=== PATIENT | male | born 1960 | race Caucasian/White ===

== ENCOUNTER → 2023-10-06 09:03 | Outpatient (REF) | payer OTHER, SELFPAY ==
[2023-10-06 11:06] LABS: Blood Urea Nitrogen 19 mg/dl (9-20); Calcium 9.6 mg/dl (8.4-10.2); Carbon Dioxide 25 mmol/L (22-30); Chloride 105 mmol/L (98-107); Glucose 120 mg/dl (70-99); Potassium 4.7 mmol/L (3.5-5.1); Sodium 137 mmol/L (135-145); eGFR > 60.00
== END ==
LOC: REG 09:03
PROVIDERS: ATTENDING PHYSICIAN Surgery Vascular Surgery; FAMILY PHYSICIAN Internal Medicine
DX: D44.6 Neoplasm of uncertain behavior of carotid body (principal)
CPT/HCPCS: 36415; 80048

== ENCOUNTER → 2023-10-14 09:15 | Outpatient (REF) | payer OTHER, SELFPAY | LOC: RAD 09:15 | PROVIDERS: ATTENDING PHYSICIAN Surgery Vascular Surgery; FAMILY PHYSICIAN Internal Medicine | DX: R42 Dizziness and giddiness (principal); D44.6 Neoplasm of uncertain behavior of carotid body; I10 Essential (primary) hypertension; I73.9 Peripheral vascular disease, unspecified; E11.40 Type 2 diabetes mellitus with diabetic neuropathy, unspecified | CPT/HCPCS: 70496; 70498; 93880; Q9967 ==

== ENCOUNTER → 2023-10-21 12:07 | Outpatient (REF) | payer OTHER, SELFPAY ==
[2023-10-23 14:48] LABS: 24 Hour Urine Total Volume Random mL; Creatinine, Urine per Volume 95 mg/dL; Dopamine, Urine 105 ug/L; Dopamine/Creatinine Ratio 111 ug/g CRT (0-250); Epinephrine, Urine 4 ug/L; Epinephrine/Creatinine Ratio 4 ug/g CRT (0-20); Norepinephrine, Urine 29 ug/L; Norepinephrine/Creatinine Rat 31 ug/g CRT (0-45); Urine Collection Length Random hr
== END ==
LOC: REG 12:07
PROVIDERS: ATTENDING PHYSICIAN Surgery Vascular Surgery; FAMILY PHYSICIAN Internal Medicine
DX: D44.6 Neoplasm of uncertain behavior of carotid body (principal)
CPT/HCPCS: 82384

== ENCOUNTER 2023-11-24 06:09 | Inpatient (IN) | payer OTHER, MEDICARE, SELFPAY ==
[2023-11-14 09:34] VITALS: BMI 32.9
[2023-11-14 12:38] LABS: % Eosinophils 2.5 % (0-6); % Immature Granulocytes 0.3 % (0-0.5); % Monocytes 8.4 % (1.7-9.3); % Neutrophils 58.8 % (42.2-75.2); Absolute Basophils 0.1 10^3/uL (0-0.2); Absolute Eosinophils 0.2 10^3/uL (0-0.7); Absolute Monocytes 0.6 10^3/uL (0.1-0.6); Hematocrit 44.8 % (39.0-52.0); Hemoglobin 14.8 g/dL (13.0-18.0); Mean Corpuscular Hgb 29.4 pg (27.0-31.0); Mean Corpuscular Volume 88.9 fL (80.0-94.0); Mean Platelet Volume 9.3 fL (7.4-10.4); Nucleated Red Blood Cells % 0 % (-); Platelet Count 209 10^3/uL (130-400); Red Blood Cell Count 5.04 10^6/uL (4.70-6.10); Red Cell Dist. Width 13.4 % (11.5-14.5); White Blood Cell Count 6.8 10^3/uL (4.8-10.8)
[2023-11-14 13:00] LABS: INR 1.08; PT 13.9 Sec (11.4-14.6)
[2023-11-14 13:01] LABS: APTT 31.4 Sec (23.4-35.0)
[2023-11-14 13:05] LABS: Blood Urea Nitrogen 19 mg/dl (9-20); Calcium 9.7 mg/dl (8.4-10.2); Carbon Dioxide 25 mmol/L (22-30); Chloride 101 mmol/L (98-107); Estimated Creatinine Clearance 102 ml/min; Glucose 102 mg/dl (70-99); Potassium 4.7 mmol/L (3.5-5.1); Sodium 137 mmol/L (135-145); eGFR > 60.00
[2023-11-24] VITALS (9 sets, daily range): BP systolic 0–144; BP diastolic 68–94; PULSE 87; BMI 31.8
[2023-11-24] MEDS: PERIDEX 0.12% ORAL RINSE 15 ML PO (06:50)
[2023-11-24] MEDS: BACTROBAN NASAL 1 GRAM NASAL (06:50)
[2023-11-24] MEDS: NSS 500 IV (06:51)
[2023-11-24 06:58] LABS: Glucose - Point of Care 128 mg/dl (70-99)
--- NOTE | 2023-11-24 07:06 | W.SUR.PREOP ---
Pre-Operative Surgical Note
-
I have examined this patient prior to the performance of the scheduled procedure.
The patient's condition is unchanged from the time of the current History and
Physical and the patient is able to undergo the scheduled procedure.
[2023-11-24 09:59] LABS: Glucose - Point of Care 130 mg/dl (70-99)
[2023-11-24 11:28] LABS: B.E. - POC -5.1 mmol/L; Glucose - POC 164 mg/dl (65-99); HCO3 - POC 21 mmol/L (21-29); Hematocrit - POC 44 % PCV (42-52); Hemodilution- POC Yes; Ionized Calcium - POC 1.16 mmol/L (1.12-1.27); Lactate - POC 1.55 mmol/L (0.36-0.75); O2 Saturation %Calculated-POC 99.5 5 (92-96); PCO2 - POC 39 mmHg (35-45); PO2 - POC 183 mmHg (80-100); Potassium - POC 4.6 mmol/L (3.6-5.0); Sodium - POC 141 mmol/L (135-145); pH - POC 7.33 (7.35-7.45)
--- NOTE | 2023-11-24 14:00 | W.SUR.POST ---
Surgical Immediate Post Op
Note
Pre Op Diagnosis: Carotid body tumor
Post Op Diagnosis: Carotid body tumor
Procedure Performed: Excision of left carotid body tumor, ligation of external carotid artery with EEG monitoring
Primary Surgeon: Emeka Hinds MD
Secondary Surgeons: Grey Bolanos MD
assistant manager trainee: Lori Fabian, MICROFILM PROCESSOR-C
Anesthesia: GETA
Estimated Blood Loss: 700 ml
Fluids: See anesthesia flowsheet
Drains/Shunts: ALBERTO x1
Specimens/Cultures: Carotid body tumor, left
Doppler/Duplex/Angio (Y/N): Y
Complications: None
Operative Findings: Successful excision of left carotid body tumor
[2023-11-24 14:12] LABS: Glucose - Point of Care 172 mg/dl (70-99)
[2023-11-24 14:14] LABS: Hematocrit 40.4 % (39.0-52.0); Hemoglobin 13.7 g/dL (13.0-18.0); Mean Corp Hgb Conc. 33.9 g/dL (33.0-37.0); Mean Corpuscular Hgb 28.7 pg (27.0-31.0); Mean Corpuscular Volume 84.5 fL (80.0-94.0); Mean Platelet Volume 8.9 fL (7.4-10.4); Platelet Count 175 10^3/uL (130-400); Red Blood Cell Count 4.78 10^6/uL (4.70-6.10); Red Cell Dist. Width 13.3 % (11.5-14.5); White Blood Cell Count 11.6 10^3/uL (4.8-10.8)
[2023-11-24 14:30] LABS: APTT 31.1 Sec (23.4-35.0); INR 1.23; PT 15.6 Sec (11.4-14.6)
[2023-11-24 14:30] LABS: Blood Urea Nitrogen 16 mg/dl (9-20); Calcium 8.3 mg/dl (8.4-10.2); Carbon Dioxide 18 mmol/L (22-30); Chloride 109 mmol/L (98-107); Estimated Creatinine Clearance > 125 ml/min; Glucose 170 mg/dl (70-99); Potassium 4.5 mmol/L (3.5-5.1); Sodium 138 mmol/L (135-145); eGFR > 60.00
[2023-11-24] MEDS: NSS 1000 IV (14:55)
--- NOTE | 2023-11-24 15:18 | CON.INTV ---
Consultation
Consultation Request
Date/Time Consultation Requested: 11/24/23
Date/Time Consultation Performed: 11/24/23
Medical History
-
History of Present Illness:
Patient is a 63 year old M with history of HTN, HLD, charcot foot disease, recurrent LLE infections s/p surgical interventions, presenting for elective LEFT carotid body tumor excision.
Outpatient w/u includes CT angiogram 10/14/2023 showing moderate-sized bilateral carotid body tumors. Postoperatively transferred to ICU for further management.
Past Medical History
Past Medical History: Other (see list below)
Social History
Tobacco: Non-smoker
Alcohol: None
Drug: None
Family History
Family History: Reviewed & Not Pertinent
Allergies / Home Medications
Allergies
Allergy/AdvReac Type Severity Reaction Status Date / Time
No Known Allergies Allergy Verified 11/09/23 10:25
Home Medications
�Medication �Instructions �Recorded �Confirmed �Last Taken �Type
fluticasone propionate 50 1 spray intranasal BID Congestion 08/31/14 11/24/23 11/23/23 21:00 History
mcg/actuation nasal
spray,suspension
atorvastatin 40 mg tablet 80 mg PO HS High cholesterol 11/09/18 11/24/23 11/23/23 21:00 History
lisinopril 10 mg tablet 10 mg PO HS Diabetes 11/09/18 11/24/23 11/23/23 21:00 History
insulin aspart U-100 100 unit/mL 20 sliding scale dose SC AC 03/14/20 11/24/23 11/23/23 18:00 History
(3 mL) subcutaneous pen (Novolog Diabetes
FlexPen U-100 Insulin aspart)
insulin detemir U-100 100 unit/mL 60 unit SC HS Diabetes 05/27/20 11/24/23 11/23/23 21:00 History
(3 mL) subcutaneous pen
dapagliflozin propanediol 5 mg 5 mg PO HS Diabetes 02/15/22 11/24/23 11/20/23 21:00 History
tablet (Farxiga)
aspirin 81 mg chewable tablet 81 mg PO HS Heart disease/condition 09/06/22 11/24/23 11/23/23 21:00 History
paroxetine HCl 10 mg tablet 5 mg PO HS 09/06/22 11/24/23 11/23/23 21:00 History
carvedilol 3.125 mg tablet 3.125 mg PO HS Heart Failure 11/09/23 11/24/23 11/23/23 21:00 History
semaglutide 0.25 mg or 0.5 mg (2 0.25 mg SC QWEEK 11/09/23 11/24/23 11/11/23 History
mg/3 mL) subcutaneous pen injector
(Ozempic)
Review of Systems
-
History Source: Patient
All other systems: Negative unless noted
Vitals / Labs / Diagnostic Testing
Vital Signs
Temp Pulse Resp BP Pulse Ox
98 F 80 14 144/86 98
11/24/23 13:50 11/24/23 14:45 11/24/23 14:45 11/24/23 14:45 11/24/23 14:45
Lab Data
11/24/23 14:03
11/24/23 14:03
Laboratory Results
11/24/23
14:04
PT 15.6 H
INR 1.23
APTT 31.1
Diagnostic Testing:
Physical Exam
-
HEENT: Normocephalic, Anicteric, Moist Mucous Membranes and Other (incision noted with drain)
Cardiovascular: S1/S2 and Regular Rhythm
Respiratory: Clear and Non-Labored Respirations
GI: Soft, Non Distended and Non Tender
Neurology: Awake, Alert, Oriented, AO x 3 and No Motor Deficits
Skin: Warm, Dry, Good Color and Other (skin lesion on R foot, L great toe lesion, s/p left toe amp)
General: Comfortable and Other (NAD)
Assessment
-
Patient is a 63 year old M with history of HTN, HLD, charcot foot disease, recurrent LLE infections s/p surgical interventions, presenting for elective LEFT carotid body tumor excision.
Outpatient w/u includes CT angiogram 10/14/2023 showing moderate-sized bilateral carotid body tumors. Postoperatively transferred to ICU for further management.
Carotid tumor s/p L tumor excision 11/24/23
Mild leukocytosis
Mild metabolic acidosis
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
CM EF 35%
CAD
Hypertension
Hypercholesterolemia
Diabetes
Anxiety
Osteoarthritis
Non-healing amputation site
Osteomyelitis of toe of left foot
Charcot right Big toe
Rt. great toe infection
Left foot wound infection
s/p 4th toe amputation lft foot
s/p left foot wound surgery w/ graft 02/21/2022
Right wrist repair
Tonsillectomy
Discectomy L-4-5
R toe fusion 03/17
Right RTC, labral debridement and SAD (DOS 12.)
Spinal Fusion L4 L5 S1
Facial basal cell surgery 05/2022
Plan
Patient is s/p carotid body tumor resection by vascular surgery service, POD #0
Continue observation following procedure
Follow neurovascular checks per protocol
ASA, betablocker and statin on board
Follow BP monitoring and parameters as set by primary team
Cardiac history noted--HTN, EF 35% on prior ECHO, CAD
Resume home meds when able
Monitor on telemetry
Pain control per protocol
RASS goal 0
No prior history of pulmonary disease, never smoker
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
No prior PFTs for review
Encouraged IS
Outpatient sleep FU if desired
Diet advancement per protocol
Aspiration precautions
GI prophylaxis if indicated for stress ulcer prevention in the critically ill
Creat at baseline, follow UO
Critical I/Os
Void trials
Replete electrolytes as needed
No signs/symptoms suspicious for infectious etiology at this time
Will observe off antibiotics for now
Follow temperatures/CBC
Hb and platelets postoperatively stable
DVT prophylaxis recommended if not contraindicated based on procedural history -- heparin SQ and mechanical SCDs
Encouraged OOB/PT/OT/ambulation once cleared by surgical team
We will follow
Diagnostic Data
CXR 11/24/23- 1. Clear lungs.
2. Pulmonary edema seen on prior chest x-ray has resolved.
ECHO 06/28/22- Normal left ventricular size, wall thickness. Moderately reduced left ventricular systolic function. The ejection fraction is estimated at 35%. Global hypokinesis with regional variability.
Normal right ventricular size and function. Thickened mitral valve leaflets, mitral valve opens normally. Mild mitral regurgitation. Thickened trileaflet aortic valve with normal leaflet excursion. No aortic
regurgitation. No evidence of infectious endocarditis. If clinical suspicion for endocarditis remains high, PALMIRA could be repeated in 5-[address]
[facility] 09/06/22- CONCLUSIONS:
1. Severe mid left anterior descending coronary artery disease confirmed ischemic by IFR testing now status post successful percutaneous coronary intervention with a single drug-eluting stent via the right radial artery.
2. Mild to moderate, nonobstructive coronary artery disease otherwise.
3. Normal left heart catheterization pressures with no evidence of aortic stenosis.
4. Mild, nonobstructive lower extremity peripheral arterial disease.
CTA H&N 10/14/23- IMPRESSION:
1. Avidly enhancing masses on both sides of the neck, located between the proximal internal and proximal external carotid arteries on each side, and causing splaying of the internal and external carotid arteries. Masses measure up to 3.2 cm in
diameter on each side, and are consistent with bilateral carotid body tumors.
2. Masses contact less than 50% of the circumference of each proximal internal carotid artery, and do not cause significant narrowing of either internal carotid artery.
-----
Critical Care time 50 mins -- The patient is admitted for acute critical illness for the treatment of vital organ failure and/or prevention of further life-threatening conditions. Total care includes time spent in review of history, physical exam,
medications, hemodynamic/ventilator parameters, laboratory data, imaging and discussion with house staff, pharmacy, respiratory therapy, dental surgery doctor, and nursing.
--- NOTE | 2023-11-24 15:30 | PTCARENOTE ---
arrived via bed from PACU, see VS for exact time. art line zero and nelly, transduced, congruent with cuff. neuro exam with SWEET PICKLED FRUIT MAKER, unchanged, speech hoarse, tongue deviates to L when extended. no weakness, smile is symmetrical, see documentation.
call matute in reach. much less sweaty than earlier in PACU per report.
[2023-11-24] MEDS: NITROGLYCERIN PREMIX 250 IV (16:40)
[2023-11-24 17:34] LABS: Glucose - Point of Care 184 mg/dl (70-99)
[2023-11-24] MEDS: NOVOLOG FLEXPEN-HIGH RESISTANCE 2 UNITS SC (18:00)
--- NOTE | 2023-11-24 18:20 | PTCARENOTE ---
family visiting, no c/o. dressing change L gr toe, small drainage. neuro check unchanged.
--- NOTE | 2023-11-24 18:48 | OR.RPT ---
Operative Report
Operative Report
PROCEDURE DATE: 11/24/2023
Preoperative diagnosis: Left carotid body tumor
Postoperative diagnosis: Same
Procedure: Resection of left carotid body tumor with ligation of left external carotid artery with intraoperative EEG/SSEP monitoring..
Surgeon: Guzman
Business Functional Analyst: Lori Fabian NP required for all aspects of procedure including assistance with traction/countertraction, following of sutures, assistance with closure.
Grey Bolanos MD required for assistance with completion of resection of adherent medial and superior aspects of tumor.
Note intraoperative consultation to Dr. Reyes Pacheco for confirmation of anatomy at medial extent of dissection.
Complications: None
Anesthesia: General
Indications for procedure:
Patient with familial bilateral carotid body tumors. Urine catecholamines negative.
Brought for left carotid body tumor resection. Risk/benefits/alternatives all fully discussed. Specific risks including heightened risk of cranial nerve injury were discussed. Patient understood all wish to proceed.
Description of procedure:
Patient was identified brought to the operating room placed on the table in supine position. After the adequate administration of anesthesia he was prepped and draped in the standard surgical fashion. A standard preoperative timeout was undertaken
and everybody was in agreement the plan. A longitudinal incision was made in the left neck that was carried through skin subcutaneous tissue. Using the electrocautery we dissected through the platysma muscle layer and then down to the level of the
sternocleidomastoid muscle. The tissues were noted to be slightly easier than normal. I then dissected along the anterior medial border of the sternocleidomastoid muscle and then identify the internal jugular vein. The vein was carefully
dissected on its anterior medial aspect. The common facial vein branch was identified and ligated between silk ties and divided. I then deepened my retraction. I then dissected the tissues overlying the common carotid artery. I immediately noted
that these tissues were all heavily vascularized. The tumor extent did not reach to this location, but the tissues were nonetheless significantly vascularized requiring assistance of electrocautery and bipolar electrocautery. This dissection and
exposure of the vessels therefore proved to be very tedious. Overlying the common carotid there was a nerve that initially appeared to be an anterior vagus nerve. However I carefully tease it off the common carotid artery. Reflected it laterally.
(Without grasping it). I carefully circumferentially dissected the common carotid artery and passed a vessel loop around it. I then was able to follow the nerve up and identified that it appeared to be a ansa hypoglossal nerve. The hypoglossal
nerve was clearly identified and care was taken to avoid any injury. I did have to pass a vessel loop around it to allow further mobilization and retraction. I continued the dissection to the bulb and then the internal carotid artery. Again as
noted this proved to be very challenging dissection, requiring meticulous hemostasis due to tremendous vascularization of the tissues. Finally, I identified the digastric muscle. I divided a portion of the digastric muscle to allow better exposure
cephalad to the hypoglossal nerve. Then I was able to carefully circumferentially dissect the internal carotid artery distally here. I passed a vessel loop around it. This appeared distal to the tumor. The carotid bifurcation was splayed and
there was tissue in between the internal and external carotid arteries. However this did not appear to be reena tumor tissue but may have been the extension/vascularity of it. At this point I attempted to dissect on the medial aspect of the common
carotid artery then onto the external carotid artery. As I did so I was able to ligate to feeding vessels/branches into the carotid body tumor. These were ligated between silk ties and divided. I now could more clearly make out the tumor which
was essentially fully posterior to the carotid bifurcation. This was as it appeared on the CT scan. I now continued to dissect up the external carotid artery trying to stand the medial side. I was able to dissect up to the bifurcation of the
external carotid artery (relatively early bifurcation again as noted on CT scan). I circumferentially dissected the external carotid artery just proximal to that split point and passed a vessel loop around it. Now I was able to start peeling the
tumor off the posterior aspect of the carotid bifurcation. Care was taken and bipolar was used to try to minimize bleeding. I was able to identify the capsule of the tumor therefore it became much more clear mass at this point. However in
dissecting it I noted a significant mount of bleeding from the posterior aspect of the carotid bifurcation. I could not tell where it was coming from but there was significant bleeding. I could not assess whether this was a feeding branch or
whether this was in the carotid vessels. I tried to dissect the internal carotid artery on the lateral side circumferentially more proximally here to confirm that this was okay but the tissues were very stuck here. Therefore I then gave the
patient 8000 units of heparin and tightened my double looped Vesseloops on the distal internal carotid artery. I then placed a profunda clamp on the external carotid artery and clamped the common carotid artery. There were no EEG/SSEP changes.
Now I was able to rotate the carotid bifurcation laterally somewhat to look at the posterior aspect more. I could not tell for sure but there appeared to be a rent and it appeared to be in the external carotid artery. But there was significant
backbleeding from the other side and therefore this likely was a direct feeder into the carotid body tumor. It was proving to be very challenging to repair from this aspect and I felt the safest thing was now to ligate the external carotid artery
at its origin. I therefore then did that with a silk tie. (I subsequently placed a double layer running 5-0 Prolene suture on it as well). I ligated the external carotid artery on the distal side as well and then divided in between. Once I did
this I was now able to gain better access to the tumor as well. I was able to grab the tumor with a [place] and then work the capsule of the tumor away from the surrounding structures with a combination of sharp dissection, finger
dissection/sweeping, bipolar dissection. I got to the point where I was freed from the carotid bifurcation and from the inferior aspect as well. The medial and superior aspects appeared strongly adherent. I try to stay in a plane medially where
the capsule was intact. It appeared to be intact. However there was tissue medially more so that I could not discern whether this was tumor tissue or whether this was structures in the pharynx region/tonsils. I therefore then consulted one of our
ENT colleagues Dr. Pacheco who came in intraoperatively and was able to assess and did not feel that this was likely any tonsillar tissue but rather this appeared to be tumor. I reviewed with one of my partners Dr. Bolanos as well who scrubbed in. We
all agree that this was likely tumor extension. Therefore with the assistance of Dr. Bolanos, I was able to then dissect the medial tissues beyond here so as to excise that additional lip of tumor as well. As such we were able to free the medial
aspect completely. The only the superior stalk was holding us in place now. Note in order to expose the superior stock as it extended quite cephalad we had to place a retractor to retract the tissues anteriorly including the hypoglossal nerve.
The nerve was carefully preserved, but had to be retracted under a retractor. The superior stalk however had within it a nerve structure. But this nerve ran directly into the tumor. I felt that this was likely the superior laryngeal nerve. I
tried to dissect this and separate this from the tumor but it was densely adherent and ran into the tumor mass. Therefore unfortunately had to ligate it proximally and then divided. Once we did this we freed up the final remaining superior
adhesions of the tumor and were able to excise the entirety of the tumor and sent it for pathology. I then carefully inspected the tumor bed. Irrigated and achieved and confirmed full hemostasis. We confirmed hemostasis in the carotid artery. I
listened with a Doppler and there was an excellent Doppler signal and excellent pulsation in the internal carotid artery. Of note the patient had been under EEG/SSEP monitoring the entire case and there had never been any EEG changes. The patient
tolerated the procedure well. He awoke moving all 4 extremities to command.
[2023-11-24] MEDS: ZOFRAN 4 MG IV (19:20)
[2023-11-24] MEDS: HEPARIN 5000 UNITS SC (20:33)
[2023-11-24] MEDS: TYLENOL 650 MG PO (20:33)
[2023-11-24] MEDS: ZESTRIL 10 MG PO (21:36)
[2023-11-24] MEDS: LIPITOR 80 MG PO (21:36)
[2023-11-24] MEDS: PAXIL 10 MG PO (21:36)
[2023-11-24] MEDS: LANTUS 0.299999999999999989 UNITS SC (21:36)
[2023-11-24] MEDS: LOW STRENGTH ASPIRIN 81 MG PO (21:37)
[2023-11-24] MEDS: COREG 3.125 MG PO (21:37)
[2023-11-24] MEDS: FARXIGA 5 MG PO (21:37)
[2023-11-24 21:41] LABS: Glucose - Point of Care 158 mg/dl (70-99)
--- NOTE | 2023-11-24 22:28 | PTCARENOTE ---
Rec'd care of patient at 1930. Patient alert and oriented. Smile symmetrical. Tongue deviation to the left; unchanged. Pupils equal & reactive. MAEx4. Left neck incision approximated; surgical glue. ALBERTO drain with scant output. NSR on tele monitor.
VSS. Left radial spencer zeroed and flushed. Titrating Nitro gtt per protocol. Pulse ox 95-97% on 2L nc. Transitioned to CPAP HS by RT. Lung sounds diminished in b/l base. +BS. Zofran administered by day shift RN for N/VEsteban Bolanos in place for hourly
I/O. Q1hr neuro checks maintained.
[2023-11-25] VITALS (12 sets, daily range): BP systolic 118–161; BP diastolic 70–98; PULSE 85; BMI 32.0
--- NOTE | 2023-11-25 00:09 | PTCARENOTE ---
No changes. Patient resting comfortably. VSS. Weaning nitro as tolerated.
[2023-11-25] MEDS: ROXICODONE 5 MG PO (01:10)
--- NOTE | 2023-11-25 01:27 | PTCARENOTE ---
Patient c/o 11/06 pain in neck. PRN Nilda administered. Patient having some difficulty swallowing. Aspiration precautions enforced. Speech therapy eval order already in place.
[2023-11-25] MEDS: NSS 1000 IV (03:08)
--- NOTE | 2023-11-25 03:08 | PTCARENOTE ---
Nitro gtt turned off. Vitals stable and within ordered range.
[2023-11-25 03:25] LABS: Hematocrit 34.4 % (39.0-52.0); Hemoglobin 11.9 g/dL (13.0-18.0); Mean Corp Hgb Conc. 34.6 g/dL (33.0-37.0); Mean Corpuscular Volume 83.7 fL (80.0-94.0); Platelet Count 166 10^3/uL (130-400); Red Blood Cell Count 4.11 10^6/uL (4.70-6.10); Red Cell Dist. Width 13.5 % (11.5-14.5); White Blood Cell Count 7.7 10^3/uL (4.8-10.8)
[2023-11-25 03:36] LABS: INR 1.23; PT 15.5 Sec (11.4-14.6)
[2023-11-25 03:37] LABS: APTT 30.4 Sec (23.4-35.0)
[2023-11-25 03:53] LABS: Blood Urea Nitrogen 16 mg/dl (9-20); Calcium 8.5 mg/dl (8.4-10.2); Carbon Dioxide 22 mmol/L (22-30); Chloride 109 mmol/L (98-107); Estimated Creatinine Clearance > 125 ml/min; Glucose 126 mg/dl (70-99); Potassium 4.2 mmol/L (3.5-5.1); Sodium 137 mmol/L (135-145); eGFR > 60.00
[2023-11-25] MEDS: DILAUDID 0.5 MG IV ×2 (05:51→21:29)
--- NOTE | 2023-11-25 07:10 | W.PN.INTV ---
Today's Communication / Plan
Recommendations
Episode overnight noted, VSE planning
CXR remains stable
Encouraged PT/OT, OOB, IS
No indication for abx at this time, observation
Path still pending on tumor
Assessment
-
Patient is a 63 year old M with history of HTN, HLD, charcot foot disease, recurrent LLE infections s/p surgical interventions, presenting for elective LEFT carotid body tumor excision.
Outpatient w/u includes CT angiogram 10/14/2023 showing moderate-sized bilateral carotid body tumors. Postoperatively transferred to ICU for further management.
Carotid tumor s/p L tumor excision 11/24/23
Mild leukocytosis
Mild metabolic acidosis
Possible aspiration overnight
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
CAD
Hypertension
Hypercholesterolemia
Diabetes
Anxiety
Osteoarthritis
Non-healing amputation site
Osteomyelitis of toe of left foot
Charcot right Big toe
Rt. great toe infection
Left foot wound infection
s/p 4th toe amputation lft foot
s/p left foot wound surgery w/ graft 02/21/2022
Right wrist repair
Tonsillectomy
Discectomy L-4-5
R toe fusion 03/17
Right RTC, labral debridement and SAD (DOS 12.31.2019)
Spinal Fusion L4 L5 S1
Facial basal cell surgery 05/2022
Plan
Patient is s/p carotid body tumor resection by vascular surgery service, POD #1
Continue observation following procedure
Follow neurovascular checks per protocol
ASA, betablocker and statin on board
Follow BP monitoring and parameters as set by primary team
Cardiac history noted--HTN, EF 35% on prior ECHO, CAD
Resume home meds when able
Monitor on telemetry
Pain control per protocol
RASS goal 0
No prior history of pulmonary disease, never smoker
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
No prior PFTs for review
Encouraged IS
Outpatient sleep FU if desired
Choking episode overnight, repeat CXR stable
VSE planning
Diet advancement per protocol
Aspiration precautions
GI prophylaxis if indicated for stress ulcer prevention in the critically ill
Creat at baseline, follow UO
Critical I/Os
Void trials
Replete electrolytes as needed
No signs/symptoms suspicious for infectious etiology at this time
Will observe off antibiotics for now
Follow temperatures/CBC
Hb and platelets postoperatively stable
DVT prophylaxis recommended if not contraindicated based on procedural history -- heparin SQ and mechanical SCDs
Encouraged OOB/PT/OT/ambulation once cleared by surgical team
Diagnostic Data
CXR 11/24/23- 1. Clear lungs.
2. Pulmonary edema seen on prior chest x-ray has resolved.
ECHO 06/28/22- Normal left ventricular size, wall thickness. Moderately reduced left ventricular systolic function. The ejection fraction is estimated at 35%. Global hypokinesis with regional variability.
Normal right ventricular size and function. Thickened mitral valve leaflets, mitral valve opens normally. Mild mitral regurgitation. Thickened trileaflet aortic valve with normal leaflet excursion. No aortic
regurgitation. No evidence of infectious endocarditis. If clinical suspicion for endocarditis remains high, PALMIRA could be repeated in 5-10 days.
[facility] 09/06/22- CONCLUSIONS:
1. Severe mid left anterior descending coronary artery disease confirmed ischemic by IFR testing now status post successful percutaneous coronary intervention with a single drug-eluting stent via the right radial artery.
2. Mild to moderate, nonobstructive coronary artery disease otherwise.
3. Normal left heart catheterization pressures with no evidence of aortic stenosis.
4. Mild, nonobstructive lower extremity peripheral arterial disease.
CTA H&N 10/14/23- IMPRESSION:
1. Avidly enhancing masses on both sides of the neck, located between the proximal internal and proximal external carotid arteries on each side, and causing splaying of the internal and external carotid arteries. Masses measure up to 3.2 cm in
diameter on each side, and are consistent with bilateral carotid body tumors.
2. Masses contact less than 50% of the circumference of each proximal internal carotid artery, and do not cause significant narrowing of either internal carotid artery.
-----
Critical Care time 35 mins -- The patient is admitted for acute critical illness for the treatment of vital organ failure and/or prevention of further life-threatening conditions. Total care includes time spent in review of history, physical exam,
medications, hemodynamic/ventilator parameters, laboratory data, imaging and discussion with house staff, pharmacy, respiratory therapy, timber spotter, and nursing.
Subjective Dataa
Subjective Data
Date of Service:
Date of Service: November 25, 2023
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
Subjective:
had cough overnight with drink
no changes in VS overnight, VSE planning in place
Objective Data
Data Reviewed
Vital Signs / I&O / Oxygen:
Vital Signs
Temp Pulse Resp BP Pulse Ox
98.7 F 76 15 146/69 96
11/25/23 03:10 11/25/23 06:30 11/25/23 06:30 11/24/23 21:36 11/25/23 06:30
Intake and Output
11/24/23 11/25/23 11/26/23
06:59 06:59 06:59
Intake Total 1501.9 / 1501.9
Output Total 3330 / 3330
Balance -1828.1 / -1828.1
SaO2 96
Nasal Cannula flow liters per 2
minute
Physical Exam
General: Comfortable and Other (NAD)
HEENT: Normocephalic and Moist Mucous Membranes
Cardiovascular: S1-S2 and Regular Rhythm
Respiratory: Rhonchi (slight) and Non-Labored Respirations
GI: Soft, Non Distended and Non Tender
Neurology: Awake, Alert, Oriented, AO x 3 and No Motor Deficits
Skin: Warm, Dry and Good Color
Labs/Micro/Reports
Lab Data
11/25/23 03:15
11/25/23 03:15
Laboratory Results
11/24/23 11/25/23
14:04 03:15
PT 15.6 H 15.5 H
INR 1.23 1.23
APTT 31.1 30.4
[2023-11-25] MEDS: HEPARIN 5000 UNITS SC ×2 (07:36→20:41)
[2023-11-25 07:53] LABS: Glucose - Point of Care 118 mg/dl (70-99)
--- NOTE | 2023-11-25 08:47 | W.PN.VS ---
Addendum entered and electronically signed by Emeka Hinds MD 11/25/23 11:47:
Seen and examined with BALBIR Fabian. Agree with findings as noted below. Patient had 1 episode of difficulty clearing secretions overnight. Concern for some possible aspiration. He feels well now. He is without specific complaints. Notes that his
voice seems to be getting a little bit stronger. Was able to swallow liquids yesterday. On exam/left neck incision is clean dry and intact. No hematoma. ALBERTO minimal serosanguineous/old sanguinous 10 cc total. Tongue continues to veer slightly to
the left but improved from yesterday. Moves all extremities well. Smile symmetric. Voice good strength, no vocal fatigue. Possible slight pitch alterations slightly high. But otherwise okay. Plan/as discussed and noted below. Discussed with
him hypoglossal nerve intact and was preserved/protected carefully, but needed to be retracted at times. Likely resulting in slight hypoglossal palsy, but hopefully will resolve. Discussed nerve coursing through tumor that needed to be ligated
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 Continue ALBERTO for today. Given secretions/throat discomfort overnight, in case any drainage in the prior tumor bed space, would continue ALBERTO for today. Out of bed, ambulate. Discontinue arterial line.
Original Note:
Today's Communication / Plan
-
Patient seen evaluated bedside with Dr. Emeka Hinds, below plan reviewed with attending
Assessment/Plan
-
Assessment: 63-year-old male POD #1 from left carotid body tumor resection
Plan:
OOB to chair with progression ambulation as tolerated
Discontinue Bolanos catheter
Discontinue arterial line
Maintain n.p.o. status until evaluated by speech
Continue IV fluids while n.p.o.
Continue ALBERTO drains with strict I and O
Continue to observe inpatient given reports of difficulty swallowing
Subjective Data
-
Date of Service: November 25, 2023
Patient seen and examined at bedside, reports hoarse voice and difficulty swallowing. Reports adequate postoperative pain management. Denies nausea, vomiting, headache, unilateral weakness, and vision changes.
Objective Data
-
Vital Signs
Temp Pulse Resp BP Pulse Ox
98.3 F 81 15 118/70 93
11/25/23 07:48 11/25/23 08:30 11/25/23 08:30 11/25/23 07:40 11/25/23 08:30
Intake and Output
11/24/23 11/25/23 11/26/23
06:59 06:59 06:59
Intake Total 1501.9 / 1581.9 160 / 160
Output Total 3330 / 3330 300 / 300
Balance -1828.1 / -1748.1 -140 / -140
Intake:
Oral fluids 180 / 180
IV fluids (Total) 1321.9 / 1401.9 160 / 160
NSS 1300 / 1380 160 / 160
ntg 21.9 / 21.9
Output:
Drain Output (Total)
Left Neck Clark-Fang
Urine, Bolanos 3320 / 3320 300 / 300
Lab Results
11/25/23 03:15
11/25/23 03:15
Calcium 8.5 mg/dl (8.4-10.2) 11/25/23 03:15
Magnesium 2.0 mg/dl (1.6-2.3) 11/24/23 14:03
Physical Exam
-
AAOx3, no apparent distress
Left neck surgical incision CDI, sutures well-approximated, no evidence of hematoma, ALBERTO drain with scant serosanguineous output, all surrounding areas soft
Face symmetrical, tongue with left-sided deviation
No tachycardia
No dyspnea on room air
ABD rotund, nondistended
Bilateral upper and lower extremities with equal strength
--- NOTE | 2023-11-25 09:34 | PTCARENOTE ---
recd pt 0715 handoff at bedside, speech gravelly, some frothy saliva at corner of lip. neck incis approx, no edema. oral care done. seen by Dr. Hinds and vascular team, reviewing assessment. discussed plan for the day. [place] dcd, urinal obtained,
bedside. art line dcd, pressure held x 8 min, hemostatic. OOB min assistance to chair. pending speech eval. call matute bedside. ALBERTO drain to bulb, pinned to gown. IV fluids capped. Neuro/vascular assessment as documented, tongue protrudes,
deviates less than yesterday. call matute in reach.
[2023-11-25 10:54] LABS: Glycohemoglobin (HgbA1c) 6.2 % (4.0-5.6)
--- NOTE | 2023-11-25 11:55 | PTCARENOTE ---
returned from E, settled in chair. Oral suction continues. call matute in reach. neuro exam unchanged.
--- NOTE | 2023-11-25 11:56 | PTOTSP ---
Dysphagia Evaluation
Patient presents with signs concerning for cranial nerve changes and pharyngeal dysphagia s/p left carotid tumor resection 11/24/2023. Video swallow study warranted to objectively assess swallowing function.
Mild dysarthria and dysphonia present. Patient 100% intelligible.
Recommend:
1. Thin Liquids
2. Medications non-oral and/or crushed and mixed in thin liquids
3. Oral care 3x daily
4. Strategies: upright to 90 degrees, small sips
5. Video swallow study
[2023-11-25 12:10] LABS: Glucose - Point of Care 167 mg/dl (70-99)
[2023-11-25] MEDS: NOVOLOG FLEXPEN-LOW RESISTANCE 1 UNITS SC (12:31)
[2023-11-25] MEDS: ROXICODONE ORAL SOLUTION 5 MG PO (12:35)
--- NOTE | 2023-11-25 13:57 | PTOTSP ---
Video Swallow Study
Summary: Patient presents with functional oral stage of swallowing and moderate-severe pharyngeal stage of swallowing. See patient care note for details of penetration/aspiration/retention/strategies.
Recommend:
1. Thin Liquids
2. Medications non-oral, liquid form, and/or crushed and mixed with thin liquids.
3. Oral care 3x daily
4. Strategies: upright to 90 degrees, small single sips, multiple swallows, reflux precautions
5. Dysphagia therapy at the acute care level. Repeat video swallow study warranted prior to initiating solids.
--- NOTE | 2023-11-25 15:10 | CM ---
CM following re: discharge planning.
Discussed in rounds, reviewed pt's chart, met with pt. Pt's brother and sister in law at bedside.
Pt is a 63 year old male, admitted with primary dx of POD #1 from left carotid body tumor resection. Per vascular surgery, continue ALBERTO drain.
Pt reports he lives with spouse in a 2SH, 2 steps to enter. 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 Pt reports he is known to [facility].
PCP: Mikhail Andrade
Pharmacy: [facility]
D/C plan: most likely home with [facility] and family support. Spouse to transport at discharge.
CM will follow with discharge plan updates as hospitalization progresses
[2023-11-25 17:05] LABS: Glucose - Point of Care 134 mg/dl (70-99)
[2023-11-25] MEDS: TYLENOL ORAL SOLUTION 650 MG PO (17:34)
[2023-11-25] MEDS: NOVOLOG FLEXPEN-LOW RESISTANCE SC (17:35)
--- NOTE | 2023-11-25 17:39 | PTCARENOTE ---
oob in chair, eating clear liquid dinner and enlive clear (divine). skin warm, T oral 98.5, ax 99.6, med with tylenol for 'warm' and general aching. Rest of VS noted. Encouraged hydration and IS.
--- NOTE | 2023-11-25 19:44 | PTCARENOTE ---
assumed care of pt approx 1900. Pt. OOB walking unit, now in chair.
Sinus w/o ectopy, BP within ordered parameters ssp 140s, temp 99.1.
AAOX4, slight tongue deviation to L side no further deviation from offgoing nurse assessment, neuro exam unremarkable.
Surgical site C/D/I, ALBERTO remains in place minimal output. Pt offers no complaints regarding pain.
[2023-11-25] MEDS: ZESTRIL 10 MG PO (21:27)
[2023-11-25] MEDS: PAXIL 10 MG PO (21:28)
[2023-11-25] MEDS: COREG 3.125 MG PO (21:28)
[2023-11-25] MEDS: LOW STRENGTH ASPIRIN 81 MG PO (21:29)
[2023-11-25] MEDS: LANTUS 0.299999999999999989 UNITS SC (21:37)
[2023-11-25 21:47] LABS: Glucose - Point of Care 144 mg/dl (70-99)
[2023-11-26] VITALS (14 sets, daily range): BP systolic 122–146; BP diastolic 76–96; BMI 32.5
--- NOTE | 2023-11-26 00:11 | PTCARENOTE ---
Neurological assessment remains unremarkable w/o deviation from baseline.
Pupils E/R 3mm bilaterally, no clinical signs of Miosis, Ptosis, or anhidrosis.
Reported increased pain Approx 0, prn admin, pt reports pain has resolved see MAR for details.
ALBERTO dressing changed.
[2023-11-26] MEDS: TYLENOL ORAL SOLUTION 650 MG PO ×3 (03:52→21:21)
--- NOTE | 2023-11-26 03:55 | PTCARENOTE ---
Pt. complains of mild headache to left side, relieved w/ Tylenol.
Neuro assessment remains unchanged.
[2023-11-26 04:22] LABS: Hematocrit 36.2 % (39.0-52.0); Hemoglobin 11.9 g/dL (13.0-18.0); Mean Corp Hgb Conc. 32.9 g/dL (33.0-37.0); Mean Corpuscular Hgb 28.7 pg (27.0-31.0); Mean Corpuscular Volume 87.2 fL (80.0-94.0); Mean Platelet Volume 8.8 fL (7.4-10.4); Platelet Count 152 10^3/uL (130-400); Red Blood Cell Count 4.15 10^6/uL (4.70-6.10); Red Cell Dist. Width 13.4 % (11.5-14.5); White Blood Cell Count 9.4 10^3/uL (4.8-10.8)
[2023-11-26 04:53] LABS: Blood Urea Nitrogen 15 mg/dl (9-20); Calcium 8.6 mg/dl (8.4-10.2); Carbon Dioxide 22 mmol/L (22-30); Chloride 102 mmol/L (98-107); Estimated Creatinine Clearance > 125 ml/min; Glucose 163 mg/dl (70-99); Potassium 4.1 mmol/L (3.5-5.1); Sodium 133 mmol/L (135-145); eGFR > 60.00
--- NOTE | 2023-11-26 07:13 | W.PN.INTV ---
Today's Communication / Plan
Recommendations
VSE demonstrating moderate-severe pharyngeal stage of swallowing
Speech following, diet modified
Otherwise stable on room air, no acute events
Continue postop care, routine care
Path still pending on tumor
Can transfer to floors if ok with surgical team
Assessment
-
Patient is a 63 year old M with history of HTN, HLD, charcot foot disease, recurrent LLE infections s/p surgical interventions, presenting for elective LEFT carotid body tumor excision.
Outpatient w/u includes CT angiogram 10/14/2023 showing moderate-sized bilateral carotid body tumors. Postoperatively transferred to ICU for further management.
Carotid tumor s/p L tumor excision 11/24/23
Mild leukocytosis
Mild metabolic acidosis
Possible aspiration overnight
VSE + with moderate-severe pharyngeal stage of swallowing 11/25/23
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
CAD
Hypertension
Hypercholesterolemia
Diabetes
Anxiety
Osteoarthritis
Non-healing amputation site
Osteomyelitis of toe of left foot
Charcot right Big toe
Rt. great toe infection
Left foot wound infection
s/p 4th toe amputation lft foot
s/p left foot wound surgery w/ graft 02/21/2022
Right wrist repair
Tonsillectomy
Discectomy L-4-5
R toe fusion 03/17
Right RTC, labral debridement and SAD (DOS 05.29.2020)
Spinal Fusion L4 L5 S1
Facial basal cell surgery 05/2022
Plan
Patient is s/p carotid body tumor resection by vascular surgery service, POD #2
Continue observation following procedure
Follow neurovascular checks per protocol
ASA, betablocker and statin on board
Follow BP monitoring and parameters as set by primary team
Cardiac history noted--HTN, EF 35% on prior ECHO, CAD
Resume home meds when able
Monitor on telemetry
Pain control per protocol
RASS goal 0
No prior history of pulmonary disease, never smoker
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
No prior PFTs for review
Encouraged IS
Outpatient sleep FU if desired
Choking episode overnight, repeat CXR stable
VSE planning w/ speech eval 11/25/23- Summary: Patient presents with functional oral stage of swallowing and moderate-severe pharyngeal stage of swallowing
Diet advancement per protocol
Aspiration precautions
GI prophylaxis if indicated for stress ulcer prevention in the critically ill
Creat at baseline, follow UO
Critical I/Os
Void trials
Replete electrolytes as needed
No signs/symptoms suspicious for infectious etiology at this time
Will observe off antibiotics for now
Follow temperatures/CBC
Hb and platelets postoperatively stable
DVT prophylaxis recommended if not contraindicated based on procedural history -- heparin SQ and mechanical SCDs
Encouraged OOB/PT/OT/ambulation once cleared by surgical team
Diagnostic Data
CXR 11/24/23- 1. Clear lungs.
2. Pulmonary edema seen on prior chest x-ray has resolved.
ECHO 06/28/22- Normal left ventricular size, wall thickness. Moderately reduced left ventricular systolic function. The ejection fraction is estimated at 35%. Global hypokinesis with regional variability.
Normal right ventricular size and function. Thickened mitral valve leaflets, mitral valve opens normally. Mild mitral regurgitation. Thickened trileaflet aortic valve with normal leaflet excursion. No aortic
regurgitation. No evidence of infectious endocarditis. If clinical suspicion for endocarditis remains high, PALMIRA could be repeated in 5-10 days.
[facility] 09/06/22- CONCLUSIONS:
1. Severe mid left anterior descending coronary artery disease confirmed ischemic by IFR testing now status post successful percutaneous coronary intervention with a single drug-eluting stent via the right radial artery.
2. Mild to moderate, nonobstructive coronary artery disease otherwise.
3. Normal left heart catheterization pressures with no evidence of aortic stenosis.
4. Mild, nonobstructive lower extremity peripheral arterial disease.
CTA H&N 10/14/23- IMPRESSION:
1. Avidly enhancing masses on both sides of the neck, located between the proximal internal and proximal external carotid arteries on each side, and causing splaying of the internal and external carotid arteries. Masses measure up to 3.2 cm in
diameter on each side, and are consistent with bilateral carotid body tumors.
2. Masses contact less than 50% of the circumference of each proximal internal carotid artery, and do not cause significant narrowing of either internal carotid artery.
-----
Critical Care time 35 mins -- The patient is admitted for acute critical illness for the treatment of vital organ failure and/or prevention of further life-threatening conditions. Total care includes time spent in review of history, physical exam,
medications, hemodynamic/ventilator parameters, laboratory data, imaging and discussion with house staff, pharmacy, respiratory therapy, grab operator, and nursing.
Subjective Dataa
Subjective Data
Date of Service:
Date of Service: November 26, 2023
Chief Complaint: Infectious Disease Technician Follow Up
Subjective:
doing well, stable on room air
sleep terribly per patient, wants to go home
sitting in chair, otherwise in NAD
Objective Data
Data Reviewed
Vital Signs / I&O / Oxygen:
Vital Signs
Temp Pulse Resp BP Pulse Ox
98.9 F 80 19 122/96 94
11/26/23 04:00 11/26/23 06:00 11/26/23 06:00 11/26/23 06:00 11/26/23 06:00
Intake and Output
11/25/23 11/26/23 11/27/23
06:59 06:59 06:59
Intake Total 1501.9 / 1581.9 960 / 960
Output Total 3330 / 3330 2585 / 2585
Balance -1828.1 / -1748.1 -1625 / -1625
SaO2 94
Nasal Cannula flow liters per 2
minute
Physical Exam
General: Comfortable and Other (NAD)
HEENT: Normocephalic and Moist Mucous Membranes
Cardiovascular: S1-S2 and Regular Rhythm
Respiratory: Clear and Non-Labored Respirations
GI: Soft, Non Distended and Non Tender
Neurology: Awake, Alert, Oriented, AO x 3 and No Motor Deficits
Skin: Warm, Dry and Good Color
Labs/Micro/Reports
Lab Data
11/26/23 04:16
11/26/23 04:16
[2023-11-26 07:36] LABS: Glucose - Point of Care 162 mg/dl (70-99)
--- NOTE | 2023-11-26 07:57 | W.PN.VS ---
Today's Communication / Plan
-
as above
Assessment/Plan
-
Assessment: 63-year-old male POD #2 from left carotid body tumor resection
Plan:
OOB to chair with progression ambulation as tolerated
Continue to observe inpatient given reports of difficulty swallowing
ALBERTO removed
Subjective Data
-
Date of Service: November 26, 2023
Patient states he feels his swallowing is improved from yesterday. He has not needed to use the suction and feels he is able to speak and swallow better. His main complaint is being unable to sleep.
Objective Data
-
Vital Signs
Temp Pulse Resp BP Pulse Ox
98.5 F 80 19 122/96 94
11/26/23 07:20 11/26/23 06:00 11/26/23 06:00 11/26/23 06:00 11/26/23 06:00
Intake and Output
11/25/23 11/26/23 11/27/23
06:59 06:59 06:59
Intake Total 1501.9 / 1581.9 960 / 960
Output Total 3330 / 3330 2585 / 2585
Balance -1828.1 / -1748.1 -1625 / -1625
Intake:
Oral fluids 180 / 180 800 / 800
IV fluids (Total) 1321.9 / 1401.9 160 / 160
NSS 1300 / 1380 160 / 160
ntg 21.9 / 21.9
Output:
Drain Output (Total)
Left Neck Clark-Fang
Urine, Bolanos 3320 / 3320 1000 / 1000
Urine, Voided 1575 / 1575
Lab Results
11/26/23 04:16
11/26/23 04:16
Calcium 8.6 mg/dl (8.4-10.2) 11/26/23 04:16
Magnesium 2.0 mg/dl (1.6-2.3) 11/24/23 14:03
Physical Exam
-
Speech slightly garbled
L neck soft, incision c/d/i
--- NOTE | 2023-11-26 08:00 | PTCARENOTE ---
Patient received from scene shifter, presents as assessed. Patient is alert and oriented, pleasant. Left tongue deviation noted. Neurochecks maintained. SR on telemetry. Lungs CTA. Patient uses home CPAP HS. Abdomen round, obese. Bathroom privileges
for elimination needs. Vascular surgery GUEST SERVICES ASSISTANT removed ALBERTO drain this am. Patient OOB to chair. Patient offers no complaints currently.
[2023-11-26] MEDS: NOVOLOG FLEXPEN-LOW RESISTANCE 1 UNITS SC (08:10)
[2023-11-26] MEDS: HEPARIN 5000 UNITS SC ×2 (08:11→21:22)
--- NOTE | 2023-11-26 12:00 | PTCARENOTE ---
Patient assessment largely unchanged. Patient offers no complaints. Pt sitting comfortably in chair.
[2023-11-26 12:06] LABS: Glucose - Point of Care 125 mg/dl (70-99)
[2023-11-26] MEDS: NOVOLOG FLEXPEN-LOW RESISTANCE SC ×2 (12:38→17:19)
--- NOTE | 2023-11-26 16:00 | PTCARENOTE ---
Patient assessment unchanged. Pt sitting OOB to chair, offers no complaints at this time.
[2023-11-26 17:20] LABS: Glucose - Point of Care 122 mg/dl (70-99)
--- NOTE | 2023-11-26 20:00 | PTCARENOTE ---
Assumed care of pt. approx 1900, OOB in chair.
AAOx4, slight tongue deviation to left no change from baseline assessment from prior shift. Pupils E/R 3mm brisk.
Sinus w/o ectopy, normotensive, normothermic, surgical site intact w/ dermabond.
Pt. offers no complaints of pain.
[2023-11-26] MEDS: LOW STRENGTH ASPIRIN 81 MG PO (21:19)
[2023-11-26] MEDS: ZESTRIL 10 MG PO (21:19)
[2023-11-26] MEDS: PAXIL 10 MG PO (21:21)
[2023-11-26] MEDS: COREG 3.125 MG PO (21:21)
[2023-11-26 21:53] LABS: Glucose - Point of Care 140 mg/dl (70-99)
[2023-11-26] MEDS: LANTUS 0.299999999999999989 UNITS SC (22:44)
--- NOTE | 2023-11-26 23:59 | PTCARENOTE ---
Pt. sleeping, all vitals stable, no deviation from prior assessment.
[2023-11-27] VITALS (14 sets, daily range): BP systolic 116–165; BP diastolic 77–101; BMI 32.5
--- NOTE | 2023-11-27 04:01 | PTCARENOTE ---
No change in assessment, pt. remains sleeping, vitals stable, no deviation from neurological baseline.
[2023-11-27 05:01] LABS: Hematocrit 35.1 % (39.0-52.0); Hemoglobin 11.6 g/dL (13.0-18.0); Mean Corpuscular Hgb 28.6 pg (27.0-31.0); Mean Corpuscular Volume 86.7 fL (80.0-94.0); Mean Platelet Volume 8.9 fL (7.4-10.4); Platelet Count 157 10^3/uL (130-400); Red Blood Cell Count 4.05 10^6/uL (4.70-6.10); Red Cell Dist. Width 13.1 % (11.5-14.5)
[2023-11-27 05:16] LABS: Blood Urea Nitrogen 11 mg/dl (9-20); Calcium 8.6 mg/dl (8.4-10.2); Carbon Dioxide 26 mmol/L (22-30); Chloride 100 mmol/L (98-107); Estimated Creatinine Clearance > 125 ml/min; Glucose 123 mg/dl (70-99); Potassium 3.8 mmol/L (3.5-5.1); Sodium 135 mmol/L (135-145); eGFR > 60.00
--- NOTE | 2023-11-27 07:16 | W.PN.INTV ---
Addendum entered and electronically signed by Gill Rios DO 11/27/23 09:35:
transfer orders placed, we will sign off upon transfer
Original Note:
Today's Communication / Plan
Recommendations
stable overnight, no issues
AVSS
postop care continued
vse noted, speech following
can likely transfer to floors if ok with vascular service
Assessment
-
Patient is a 63 year old M with history of HTN, HLD, charcot foot disease, recurrent LLE infections s/p surgical interventions, presenting for elective LEFT carotid body tumor excision.
Outpatient w/u includes CT angiogram 10/14/2023 showing moderate-sized bilateral carotid body tumors. Postoperatively transferred to ICU for further management.
Carotid tumor s/p L tumor excision 11/24/23
Mild leukocytosis
Mild metabolic acidosis
Possible aspiration overnight
VSE + with moderate-severe pharyngeal stage of swallowing 11/25/23
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
CM EF 35%
CAD
Hypertension
Hypercholesterolemia
Diabetes
Anxiety
Osteoarthritis
Non-healing amputation site
Osteomyelitis of toe of left foot
Charcot right Big toe
Rt. great toe infection
Left foot wound infection
s/p 4th toe amputation lft foot
s/p left foot wound surgery w/ graft 02/21/2022
Right wrist repair
Tonsillectomy
Discectomy L-4-5
R toe fusion 03/17
Right RTC, labral debridement and SAD (DOS 05.29.2020)
Spinal Fusion L4 L5 S1
Facial basal cell surgery 05/2022
Plan
Patient is s/p carotid body tumor resection by vascular surgery service, POD #3
Continue observation following procedure
Follow neurovascular checks per protocol
ASA, betablocker and statin on board
Follow BP monitoring and parameters as set by primary team
Cardiac history noted--HTN, EF 35% on prior ECHO, CAD
Resume home meds when able
Monitor on telemetry
Pain control per protocol
RASS goal 0
No prior history of pulmonary disease, never smoker
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
No prior PFTs for review
Encouraged IS
Outpatient sleep FU if desired
Choking episode overnight, repeat CXR stable
VSE planning w/ speech eval 11/25/23- Summary: Patient presents with functional oral stage of swallowing and moderate-severe pharyngeal stage of swallowing
Should improve as swelling resolves
Diet advancement per protocol
Aspiration precautions
GI prophylaxis if indicated for stress ulcer prevention in the critically ill
Creat at baseline, follow UO
Critical I/Os
Void trials
Replete electrolytes as needed
No signs/symptoms suspicious for infectious etiology at this time
Will observe off antibiotics for now
Follow temperatures/CBC
Hb and platelets postoperatively stable
DVT prophylaxis recommended if not contraindicated based on procedural history -- heparin SQ and mechanical SCDs
Encouraged OOB/PT/OT/ambulation once cleared by surgical team
Diagnostic Data
CXR 11/24/23- 1. Clear lungs.
2. Pulmonary edema seen on prior chest x-ray has resolved.
ECHO 06/28/22- Normal left ventricular size, wall thickness. Moderately reduced left ventricular systolic function. The ejection fraction is estimated at 35%. Global hypokinesis with regional variability.
Normal right ventricular size and function. Thickened mitral valve leaflets, mitral valve opens normally. Mild mitral regurgitation. Thickened trileaflet aortic valve with normal leaflet excursion. No aortic
regurgitation. No evidence of infectious endocarditis. If clinical suspicion for endocarditis remains high, PALMIRA could be repeated in 5-10 days.
[facility] 09/06/22- CONCLUSIONS:
1. Severe mid left anterior descending coronary artery disease confirmed ischemic by IFR testing now status post successful percutaneous coronary intervention with a single drug-eluting stent via the right radial artery.
2. Mild to moderate, nonobstructive coronary artery disease otherwise.
3. Normal left heart catheterization pressures with no evidence of aortic stenosis.
4. Mild, nonobstructive lower extremity peripheral arterial disease.
CTA H&N 10/14/23- IMPRESSION:
1. Avidly enhancing masses on both sides of the neck, located between the proximal internal and proximal external carotid arteries on each side, and causing splaying of the internal and external carotid arteries. Masses measure up to 3.2 cm in
diameter on each side, and are consistent with bilateral carotid body tumors.
2. Masses contact less than 50% of the circumference of each proximal internal carotid artery, and do not cause significant narrowing of either internal carotid artery.
-----
Critical Care time 31 mins -- The patient is admitted for acute critical illness for the treatment of vital organ failure and/or prevention of further life-threatening conditions. Total care includes time spent in review of history, physical exam,
medications, hemodynamic/ventilator parameters, laboratory data, imaging and discussion with house staff, pharmacy, respiratory therapy, elastic yarn twister helper, and nursing.
Subjective Dataa
Subjective Data
Date of Service:
Date of Service: November 27, 2023
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
Subjective:
doing well, no events
remains stable
no new complaints
Objective Data
Data Reviewed
Vital Signs / I&O / Oxygen:
Vital Signs
Temp Pulse Resp BP Pulse Ox
97.8 F 76 17 120/81 94
11/27/23 03:37 11/27/23 06:00 11/27/23 06:00 11/27/23 06:00 11/27/23 06:00
Intake and Output
11/26/23 11/27/23 11/28/23
06:59 06:59 06:59
Intake Total 960 / 960 120 / 120
Output Total 2585 / 2585 875 / 875
Balance -1625 / -1625 -755 / -755
SaO2 94
Nasal Cannula flow liters per 2
minute
Physical Exam
General: Comfortable and Other (NAD)
HEENT: Normocephalic and Moist Mucous Membranes
Cardiovascular: S1-S2 and Regular Rhythm
Respiratory: Clear and Non-Labored Respirations
GI: Soft, Non Distended and Non Tender
Neurology: Awake, Alert, Oriented, AO x 3 and No Motor Deficits
Skin: Warm, Dry and Good Color
Labs/Micro/Reports
Lab Data
11/27/23 04:51
11/27/23 04:51
[2023-11-27 07:49] LABS: Glucose - Point of Care 148 mg/dl (70-99)
[2023-11-27] MEDS: TYLENOL ORAL SOLUTION 650 MG PO ×2 (07:49→20:34)
[2023-11-27] MEDS: HEPARIN 5000 UNITS SC ×2 (07:49→20:32)
[2023-11-27] MEDS: NOVOLOG FLEXPEN-LOW RESISTANCE SC ×3 (07:50→17:17)
--- NOTE | 2023-11-27 09:26 | W.PN.VS ---
Today's Communication / Plan
-
as above
Assessment/Plan
-
Assessment: 63-year-old male POD #3 from left carotid body tumor resection
Plan:
OOB to chair with progression ambulation as tolerated
Continue to observe inpatient given reports of difficulty swallowing
ok to transfer to the floor
will await video swallow tomorrow
Subjective Data
-
Date of Service: November 27, 2023
No acute events. Says he thinks his speech is improvement, still having some trouble swallowing.
Objective Data
-
Vital Signs
Temp Pulse Resp BP Pulse Ox
98.3 F 75 14 165/101 96
11/27/23 07:36 11/27/23 08:00 11/27/23 08:00 11/27/23 07:00 11/27/23 08:00
Intake and Output
11/26/23 11/27/23 11/28/23
06:59 06:59 06:59
Intake Total 960 / 960 120 / 120 240 / 240
Output Total 2585 / 2585 875 / 875 700 / 700
Balance -1625 / -1625 -755 / -755 -460 / -460
Intake:
Oral fluids 800 / 800 120 / 120 240 / 240
IV fluids (Total) 160 / 160
NSS 160 / 160
Output:
Drain Output (Total)
Left Neck Clark-Fang
Urine, Bolanos 1000 / 1000
Urine, Voided 1575 / 1575 875 / 875 700 / 700
Lab Results
11/27/23 04:51
11/27/23 04:51
Calcium 8.6 mg/dl (8.4-10.2) 11/27/23 04:51
Magnesium 2.0 mg/dl (1.6-2.3) 11/24/23 14:03
Physical Exam
-
NAD
tongue slightly deviated, speech less garbled today
incision c/d/i, neck soft
--- NOTE | 2023-11-27 09:58 | PTCARENOTE ---
0700 patient received OOB chair. AAO x3. c/o of lower back pain 7/10 pain scale level. Neuro check assessment no change from previous shift: Pupils reactive +3; Tongue deviation to left; Mouth drooping left side. Occasional cough while swallowing
liquid noted. pt express difficulties swallowing liquid. VSS. left neck incision well approximated soft to touch . 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 Tylenol adm per prn order for back pain. K-Pad applied pt downgraded to telemetry level of care . Transfer approved by vascular
surgery
[2023-11-27 11:57] LABS: Glucose - Point of Care 143 mg/dl (70-99)
--- NOTE | 2023-11-27 15:00 | PTCARENOTE ---
Rec'd pt from ICU est 15:00 today via wheelchair. Pt AOO and pain was rated est 3-4 to lower back and left side of neck at incisional site. Pt oob and amb on his own. AOO x3 AHR reg, Lungs are clear and Abd obese and round. Pt states that he has
had a BM today. On clear liquids at this time and is able to swallow them.. Speech is on board and video swallow ordered. Slight facial noted and with a mild slurred speech which is from his recent surgery of remocal of Cancer from his left
carotid. Swelling is expected to decrease along with these recent change post surgery. pt is on day 3 post op. Will cont to monitor. Daughter is at his bedside. Speech is following. pain under control at present. Will cont to monitor.
--- NOTE | 2023-11-27 15:09 | PTCARENOTE ---
patient transfer to room 2121 Report given; VSS; No change in Neuro assessment noted. Left side deviation, mild facial drooping continue to be noted. denies headache . Left neck incision JUAN. K-pad transfer with patient
[2023-11-27 17:15] LABS: Glucose - Point of Care 112 mg/dl (70-99)
[2023-11-27 21:55] LABS: Glucose - Point of Care 136 mg/dl (70-99)
[2023-11-27] MEDS: COREG 3.125 MG PO (23:00)
[2023-11-27] MEDS: ZESTRIL 10 MG PO (23:01)
[2023-11-27] MEDS: LIPITOR 80 MG PO (23:01)
[2023-11-27] MEDS: LANTUS 0.299999999999999989 UNITS SC (23:01)
[2023-11-27] MEDS: PAXIL 10 MG PO (23:02)
[2023-11-27] MEDS: LOW STRENGTH ASPIRIN 81 MG PO (23:02)
[2023-11-28 03:02] VITALS: BP 127/68
[2023-11-28 06:00] VITALS: BMI 30.8
[2023-11-28 06:48] LABS: Hematocrit 36.6 % (39.0-52.0); Hemoglobin 12.1 g/dL (13.0-18.0); Mean Corp Hgb Conc. 33.1 g/dL (33.0-37.0); Mean Corpuscular Hgb 28.5 pg (27.0-31.0); Mean Corpuscular Volume 86.3 fL (80.0-94.0); Mean Platelet Volume 9.3 fL (7.4-10.4); Platelet Count 178 10^3/uL (130-400); Red Blood Cell Count 4.24 10^6/uL (4.70-6.10); Red Cell Dist. Width 12.9 % (11.5-14.5); White Blood Cell Count 4.5 10^3/uL (4.8-10.8)
[2023-11-28 07:10] LABS: Glucose - Point of Care 149 mg/dl (70-99)
[2023-11-28 07:17] LABS: Blood Urea Nitrogen 12 mg/dl (9-20); Calcium 8.9 mg/dl (8.4-10.2); Carbon Dioxide 27 mmol/L (22-30); Chloride 100 mmol/L (98-107); Estimated Creatinine Clearance > 125 ml/min; Glucose 123 mg/dl (70-99); Potassium 3.7 mmol/L (3.5-5.1); Sodium 136 mmol/L (135-145); eGFR > 60.00
[2023-11-28 07:47] VITALS: BP 110/70
--- NOTE | 2023-11-28 08:16 | W.PN.VS ---
Addendum entered and electronically signed by Grey Bolanos III, MD 11/28/23 10:54:
This patient was seen and examined with EDDIE Naik. I agree with the history and physical exam as well as the assessment and plan.
Signed:
Grey Bolanos III, MD
[facility] Vascular Surgery
[phone] (hwop)
Original Note:
Today's Communication / Plan
-
Seen and assessed with Dr. Bolanos
Assessment/Plan
-
Assessment: 63-year-old male POD #4 from left carotid body tumor resection
Plan:
OOB to chair with progression ambulation as tolerated
video swallow today, then likely progress diet
Subjective Data
-
Date of Service: November 28, 2023
Patient seen at bedside this a.m. with Dr. Bolanos. Patient has no complaints this morning. Patient states sips have been going well. He models with his water at bedside with no issue
Objective Data
-
Vital Signs
Temp Pulse Resp BP Pulse Ox
98.0 F 70 16 110/70 97
11/28/23 07:47 11/28/23 07:47 11/28/23 07:47 11/28/23 07:47 11/28/23 07:47
Intake and Output
11/27/23 11/28/23 11/29/23
06:59 06:59 06:59
Intake Total 120 / 120 720 / 720
Output Total 875 / 875 700 / 700
Balance -755 / -755 20 / 20
Intake:
Oral fluids 120 / 120 720 / 720
Output:
Urine, Voided 875 / 875 700 / 700
Other:
Number of approximated MODERATE 1
amounts of urine
Number of unmeasured liquid
stools
Rectum 1
Lab Results
11/28/23 05:35
11/28/23 05:35
Calcium 8.9 mg/dl (8.4-10.2) 11/28/23 05:35
Magnesium 2.0 mg/dl (1.6-2.3) 11/24/23 14:03
Physical Exam
-
AAOx3, no apparent distress
Left neck surgical incision CDI, sutures well-approximated, mild swelling, surrounding areas soft
tongue with left-sided deviation
No dyspnea on room air
Bilateral upper and lower extremities with equal strength
[2023-11-28] MEDS: NOVOLOG FLEXPEN-LOW RESISTANCE SC ×2 (09:01→17:33)
[2023-11-28] MEDS: HEPARIN 5000 UNITS SC ×2 (09:01→20:42)
[2023-11-28 12:30] VITALS: BP 140/86
[2023-11-28 12:34] LABS: Glucose - Point of Care 209 mg/dl (70-99)
[2023-11-28] MEDS: NOVOLOG FLEXPEN-LOW RESISTANCE 2 UNITS SC (12:54)
--- NOTE | 2023-11-28 13:08 | PTOTSP ---
Video Swallow Study
Summary: Patient presents with functional oral stage of swallowing and moderate-severe pharyngeal stage of swallowing. See patient care note for details of penetration/aspiration/retention/strategies.
No significant improvement noted compared to study 11/25/2023. Dysphagia likely secondary to cranial nerve changes after left carotid tumor resection. Patient is at an elevated risk for aspiration and choking.
Recommend:
1. Thin Liquids AND consider non-oral means of supplemental nutrition/hydration
2. Medications non-oral, liquid form, and/or crushed and mixed with thin liquids.
3. Oral care 3x daily
4. Strategies: upright to 90 degrees, small single sips, multiple swallows, reflux precautions
5. Dysphagia therapy at the acute care level and after D/C.
6. Consult dietitian
[2023-11-28 14:43] VITALS: BP 164/95
--- NOTE | 2023-11-28 16:11 | W.PN.UPDATE ---
Update Note
Progress Note Update
Discussed with patient results of video swallow.
Discussed that I have asked ENT - Dr. Pacheco to evaluate as well (he will see in AM).
Discussed potential need for additional nutrition (likey PEG tube vs less likely TPN).
Discussed that I am not certain if swallow results related still to post operative inflammation in pharynx or related to the unavoidable nerve sacrificed with carotid body tumor (intimately adherent) - likely superior laryngeal (less likely
glossopharyngeal). He denies any tongue numbness (would support glossopharyngeal nerve).
Hypoglossal neuropraxia improving.
He understands all.
--- NOTE | 2023-11-28 16:39 | CM ---
Video swallow today, advance diet based on results. Discharge Plan of Care: Anticipate home with [facility] for [facility].
[2023-11-28 17:25] LABS: Glucose - Point of Care 129 mg/dl (70-99)
[2023-11-28 19:06] VITALS: BP 154/96
[2023-11-28 21:26] LABS: Glucose - Point of Care 129 mg/dl (70-99)
[2023-11-28] MEDS: LOW STRENGTH ASPIRIN 81 MG PO (21:45)
[2023-11-28] MEDS: PAXIL 10 MG PO (21:45)
[2023-11-28] MEDS: LIPITOR 80 MG PO (21:45)
[2023-11-28] MEDS: COREG 3.125 MG PO (21:47)
[2023-11-28] MEDS: ZESTRIL 10 MG PO (21:47)
[2023-11-28] MEDS: LANTUS 0.299999999999999989 UNITS SC (21:48)
[2023-11-28] MEDS: TYLENOL ORAL SOLUTION 650 MG PO (21:51)
[2023-11-28 23:05] VITALS: BP 125/68
[2023-11-29 03:11] VITALS: BP 105/61
[2023-11-29 04:49] VITALS: BMI 30.8
[2023-11-29 05:55] VITALS: BMI 30.8
[2023-11-29 06:10] VITALS: BMI 30.8
[2023-11-29 07:05] VITALS: BP 136/81
--- NOTE | 2023-11-29 07:25 | PN.DE.MGMTRT ---
Insulin Management
- -
11/29/2023 Diabetes Management Consult
Patient admitted 11/23 for elective surgery of Left carotid body tumor. PMH HTN, HLD, Charcot foot, LLL infection with surgical intervention. Prior to admission was taking Farxiga 5 mg @ hs, novolog up to 24 units AC SS, Levemir 60 units @ hs.
Patient is awake, alert and oriented oob in chair, able to discuss diabetes management. Patient states he sees Dr. Hansen, endocrine for diabetes management. He states he takes either levemir or lantus at HS. Advised patient levemir will no
longer be available on market. He states he also takes Ozempic, .25 for one month, will start .5 when discharged to home.
POD 5 s/p surgical removal carotid body tumor.
Patient ordered clear liquids, glucose yesterday 129 to 209, received corrective insulin.
Clear liquids continue today. Farxiga on hold, will continue to hold until diet resumed.
Will make no change to lantus, 30 units @ hs and low corrective insulin. Discussed with patients nurse.
Diabetes History
- -
Type of Diabetes: 2
Pre-Admission Diabetes Regimen
Lab Results
Hemoglobin A1c 6.2 % (4.0-5.6) H 11/25/23 03:15
Insulin Pump Settings
IP Diabetes Regimen
11/28/23 11/28/23 11/28/23
12:27 17:23 21:24
POC Glucose 209 H 129 H 129 H
Meal type: Dinner
Meal type: Lunch
Meal type: Breakfast
Amount consumed: 100%
Amount consumed: 100%
Patient Education
[2023-11-29 07:59] LABS: Glucose - Point of Care 150 mg/dl (70-99)
[2023-11-29] MEDS: HEPARIN 5000 UNITS SC (08:03)
[2023-11-29] MEDS: NOVOLOG FLEXPEN-LOW RESISTANCE 1 UNITS SC (08:04)
--- NOTE | 2023-11-29 09:12 | W.PN.VS ---
Addendum entered and electronically signed by Grey Bolanos III, MD 11/29/23 10:49:
This patient was seen and examined with EDDIE Dick. I agree with the history and physical exam as well as the assessment and plan.
Signed:
Grey Bolanos III, MD
[facility] Vascular Surgery
[phone] (rsea)
Original Note:
Today's Communication / Plan
-
Patient seen and examined at bedside with Dr. Grey Bolanos III, below plan reviewed with attending.
Assessment/Plan
-
Assessment: 63-year-old male POD #5 from left carotid body tumor resection
Plan:
ENT consult
Continue clears
Possible general surgery consult for consideration of PEG placement
Dietary consult
Subjective Data
-
Date of Service: November 29, 2023
Patient seen and examined at bedside, continued to report difficulty with swallowing. Denies nausea, vomiting, fever, and chills. Reports adequate post operative pain management.
Objective Data
-
Vital Signs
Temp Pulse Resp BP Pulse Ox
98.3 F 67 14 136/81 98
11/29/23 07:05 11/29/23 07:05 11/29/23 07:05 11/29/23 07:05 11/29/23 07:05
Intake and Output
11/28/23 11/29/23 11/30/23
06:59 06:59 06:59
Intake Total 720 / 720 2820 / 2820
Output Total 700 / 700
Balance / 20 2820 / 2820
Intake:
Oral fluids 720 / 720 2820 / 2820
Output:
Urine, Voided 700 / 700
Other:
Number of approximated SMALL 2
amounts of urine
Number of approximated MODERATE 1 2
amounts of urine
Number of unmeasured liquid
stools
Rectum 1
Lab Results
11/28/23 05:35
11/28/23 05:35
Calcium 8.9 mg/dl (8.4-10.2) 11/28/23 05:35
Magnesium 2.0 mg/dl (1.6-2.3) 11/24/23 14:03
Physical Exam
-
AAOx3, no apparent distress
Left neck surgical incision CDI, sutures well-approximated, mild swelling, surrounding areas soft
tongue with left-sided deviation
No dyspnea on room air
Bilateral upper and lower extremities with equal strength
--- NOTE | 2023-11-29 10:33 | PN.CDI ---
CDI
- -
CDI:
Physician Documentation Request
Admit Date: 11/24/23 06:09
Dear Vascular Surgery,
Patient admitted with carotid body tumor.
11/23 Operative Report: 'Resection of left carotid body tumor with ligation of left external carotid artery'
11/23 Anesthesia Report: 'Total fluid (mL): 1900...Blood Loss: 700mL'
Laboratory Tests
11/14/23 11/24/23 11/25/23 11/27/23
14:03 03:15 04:51
Hgb 14.8 13.7 11.9 L 11.6 L
Based on the above, could you clarify in the progress notes, the appropriate diagnosis, if significant, that supports the above abnormalities and additional evaluation, monitoring and/or treatment rendered:
Acute anemia multifactorial hemodilution and blood loss
Acute blood loss anemia
Hemodilution only
Other
Use of terms such as suspected, likely, concern for, or probable (associated with a specific diagnosis that is being evaluated, monitored, or treated as if it exists) are acceptable and can be coded in the inpatient setting, when documented at the
time of discharge.
Thank you,
Krissy Mckeon RN, BSN
CDI Specialist
Available via [employer] text
Please use your independent medical judgment in providing your response.
[2023-11-29 12:08] LABS: Glucose - Point of Care 136 mg/dl (70-99)
[2023-11-29] MEDS: NOVOLOG FLEXPEN-LOW RESISTANCE SC (12:08)
--- NOTE | 2023-11-29 12:54 | W.PN.UPDATE ---
Update Note
Progress Note Update
re-consulted for postop dysphagia.
food feels like it sticks in throat, able to get thin liquids down easier but some aspiration sx if swallowing quickly. dysarthria, improving. some soreness still in L/midline neck.
Exam:
mild dysarthria, no hoarseness, no stridor, no drool
nose normal
OC/OP tongue deviates slightly to R. tonsils absent.
neck with diffuse edema on L, incision c/d/i
NPL (verbal consent, topical lidocaine/afrin): very minimal edema around L TVC and FVC. VC fully mobile.
Imp:
dysphagia, presumably from compromise of branches of glossopharyneal and/or vagal nerves, causing sensory and/or motor deficits.
impossible to tell if deficits will be temporary or permanent.
there is some minimal edema of the larynx on the left consistent with the recent neck surgery, probably unrelated.
there is also some paresis of the hypoglossal nerve, seems to be improving and likely to resolve.
Rec:
reasonable to wait at least a week before committing to PEG tube placement. enteral nutrition either by po supplements or temporary NGT. Speech Therapy should be able to aid his recovery.
--- NOTE | 2023-11-29 14:50 | CM ---
Addendum entered by Chaz Mancuso 11/29/23 16:24:
[facility] FAX # [phone]
Addendum entered by Chaz Mancuso 11/29/23 16:20:
Patient is medically cleared for discharge to home with outpatient follow-up and instructions to remain on Clear liquid diet and Ensure + high protein supplements 6x/day. [facility] will provide services after discharge. Patient has arranged for
transport home.
Addendum entered by Chaz Mancuso 11/29/23 15:23:
Current plan is Dante MILLAN.
Original Note:
Clear liquid diet, considering Surgical consult for possible Peg placement, Metal Sprayer consult. Discharge Plan of Care TBD based on medical progression and decision for best means of receiving nutrition: PO, Peg, TPN. Will continue to follow and
determine discharge POC.
[2023-11-29 15:10] VITALS: BP 134/88
--- NOTE | 2023-11-29 15:56 | W.[place]-PDMP ---
[place]-PD[place]
-
Checked the [place]- Prescription Drug Monitoring Program website, no red flags identified; safe to proceed with prescription.
--- NOTE | 2023-11-29 15:56 | W.DS.TRANS ---
DC Summary - Hop [facility]orter
-
Discharge Instructions:
Discharge Diagnosis/Procedures Resection of left carotid body tumor with
ligation of left external carotid artery with
intraoperative EEG/SSEP monitoring.
Diet Other diet
Additional Diets clear liquid diet with the exception of (NO
yogurt, applesauce) Ensure +high protein 6 times
per day
Activity No strenuous activity
Driving Restrictions Not until seen by your Dr
Bathing Restrictions OK to Shower
Others Tests Your repeat video swallow evaluation has been
scheduled for 12/08/2023 at 8:30AM
Other Services ST
Instructions:
Stand-Alone Forms: DC Instr - Vascular OR
Changes to Home Medications: Yes
Discharge Medications:
DC Medications w/original date entered in [employer]
fluticasone propionate 50 mcg/actuation nasal spray,suspension 1 spray intranasal BID Congestion 08/31/14
atorvastatin 40 mg tablet 80 mg PO HS High cholesterol 11/09/18
lisinopril 10 mg tablet 10 mg PO HS Diabetes 11/09/18
dapagliflozin propanediol 5 mg tablet (Farxiga) 5 mg PO HS Diabetes 02/15/22
aspirin 81 mg chewable tablet 81 mg PO HS Heart disease/condition 09/06/22
paroxetine HCl 10 mg tablet 10 mg PO HS Mental Health/Anxiety 09/06/22
carvedilol 3.125 mg tablet 3.125 mg PO HS Heart Failure 11/09/23
semaglutide 0.25 mg or 0.5 mg (2 mg/3 mL) subcutaneous pen injector (Ozempic) 0.25 mg SC QWEEK Diabetes 11/09/23
Insulin Glargine Lantus [Lantus] 30 units As Directed mls/hr SC HS 11/29/23
acetaminophen 650 mg/20.3 mL oral solution 650 mg (20.3 mL) PO Q6H PRN mild pain 1 week #568.4 mL 11/29/23
insulin aspart U-100 100 unit/mL (3 mL) subcutaneous pen (Novolog FlexPen U-100 Insulin aspart) 1 sliding scale dose SC AC Diabetes #0 mL 11/29/23
oxycodone 5 mg/5 mL oral solution 5 mg (5 mL) PO Q6HPRN PRN mild pain 4 days #80 mL 11/29/23
Home Medication Changes
HOLD Farziga
Lantus dose halfed
Sliding scale adjusted
Tylenol and oxy liquids added
Pending Results: No
--- NOTE | 2023-11-29 16:26 | W.PN.UPDATE ---
Update Note
Progress Note Update
In response to CDI:
11/23 Operative Report: 'Resection of left carotid body tumor with ligation of left external carotid artery'
11/23 Anesthesia Report: 'Total fluid (mL): 1900...Blood Loss: 700mL'
Laboratory Tests
11/14/23 11/24/23 11/25/23 11/27/23
: 14:03 03:15 04:51
Hgb 14.8 13.7 11.9 L 11.6 L
Based on the above, could you clarify in the progress notes, the appropriate diagnosis, if significant, that supports the above abnormalities and additional evaluation, monitoring and/or treatment rendered:
Acute anemia multifactorial hemodilution and blood loss
--- NOTE | 2023-12-05 11:02 | PN.CDI ---
CDI
- -
CDI:
Physician Documentation Request
Admit Date: 11/24/23 06:09
Dear Vascular Surgery,
Patient admitted with carotid body tumor.
11/28 Farm Product Purchaser Assessment: 'Significant 15lb 6.8% wt loss noted during admission. Pt meets criteria for severe protein calorie malnutrition of acute illness with >2 % wt loss x 1week, prolonged inadequate energy needs < 50% estimated needs
on clear liquid diet.'
Based on the above information and your assessment, which of the following most accurately represents the patient's nutritional status?
Severe protein calorie malnutrition
Other
[place] Criteria ([facility] Hospitalist 2017)
2 or more criteria must be present for either
non severe or severe malnutrition
Note that the criteria differs related to the
presence of an acute or chronic illness
Acute Illness Chronic Illness
Energy Intake Non Severe: <75% for >7 days Non Severe: <75% for >1 month
Severe: <50% for >5 days Severe: <75% for >1 month
Weight Loss Non Severe: 1-2% over 1 week Non Severe: 5% over 1 month
5% over 1 month 7.5% over 3 months
7.5% over 3 months 10% over 6 months
1 year N/A 20% over 1 year
Severe: >2% over 1 week Severe: >5% over 1 month
>5% over 1 month >7.5% over 3 months
>7.5% over 3 months >10% over 6 months
1 year N/A >20% over 1 year
Body Fat Non Severe: Mild Decrease Non Severe: Mild Loss
Severe: Moderate Decrease Severe: Severe Loss
Muscle Mass Non Severe: Mild Decrease Non Severe: Mild Loss
Severe: Moderate Decrease Severe: Severe Loss
Fluid Accumulation Non Severe: Mild Accumulation Non Severe: Mild Accumulation
Severe: Moderate to severe Severe: Moderate to severe
accumulation accumulation
Reduced Patient Registration Representative Strength Non Severe: N/A Non Severe: N/A
Severe: Measurably reduced Severe: Measurably reduced
Additional criteria that can be used to Determine if Mild or Moderate Malnutrition (Merck Manual 2018)
Mild Moderate Severe
Albumin gm/dl <3.0 gm/dl <2.5 gm/dl <2.0 gm/dl
Pre Albumin mg/dl <15 gm/dl <10 mg/dl <5.0 mg/dl
BMI <18.5 <17 <16
Use of terms such as suspected, likely, concern for, or probable (associated with a specific diagnosis that is being evaluated, monitored, or treated as if it exists) are acceptable and can be coded in the inpatient setting, when documented at the
time of discharge.
Thank you,
Krissy Mckeon RN, BSN
CDI Specialist
Available via [employer] text
Please use your independent medical judgment in providing your response.
--- NOTE | 2023-12-05 14:18 | W.PN.UPDATE ---
Update Note
Progress Note Update
CDI:
Physician Documentation Request
Admit Date: 11/24/23 06:09
Dear Vascular Surgery,
Patient admitted with carotid body tumor.
11/28 Molecular Technologist Assessment: 'Significant 15lb 6.8% wt loss noted during admission. Pt meets criteria for severe protein calorie malnutrition of acute illness with >2 % wt loss x 1week, prolonged inadequate energy needs < 50% estimated needs
on clear liquid diet.'
Based on the above information and your assessment, which of the following most accurately represents the patient's nutritional status?
Severe protein calorie malnutrition d/t inability to swallow think liquids and solids for admission, this resulted in weight loss and inability to meet energy intake needs.
[place] Criteria ([facility] Hospitalist 2017)
2 or more criteria must be present for either non severe or severe malnutrition
Note that the criteria differs related to the
presence of an acute or chronic illness
Acute Illness Chronic Illness
Energy Intake Non Severe: <75% for >7 days Non Severe: <75% for >1 month
Severe: <50% for >5 days Severe: <75% for >1 month
Weight Loss Non Severe: 1-2% over 1 week Non Severe: 5% over 1 month
5% over 1 month 7.5% over 3 months
7.5% over 3 months 10% over 6 months
1 year N/A 20% over 1 year
Severe: >2% over 1 week Severe: >5% over 1 month
>5% over 1 month >7.5% over 3 months
>7.5% over 3 months >10% over 6 months
1 year N/A >20% over 1 year
Body Fat Non Severe: Mild Decrease Non Severe: Mild Loss
Severe: Moderate Decrease Severe: Severe Loss
Muscle Mass Non Severe: Mild Decrease Non Severe: Mild Loss
Severe: Moderate Decrease Severe: Severe Loss
Fluid Accumulation Non Severe: Mild Accumulation Non Severe: Mild Accumulation
Severe: Moderate to severe Severe: Moderate to severe
accumulation accumulation
Reduced Footwear Sales Associate Strength Non Severe: N/A Non Severe: N/A
Severe: Measurably reduced Severe: Measurably reduced
Additional criteria that can be used to Determine if Mild or Moderate Malnutrition (Merck Manual 2018)
Mild Moderate Severe
Albumin gm/dl <3.0 gm/dl <2.5 gm/dl <2.0 gm/dl
Pre Albumin mg/dl <15 gm/dl <10 mg/dl <5.0 mg/dl
BMI <18.5 <17 <16
Use of terms such as suspected, likely, concern for, or probable (associated with a specific diagnosis that is being evaluated, monitored, or treated as if it exists) are acceptable and can be coded in the inpatient setting, when documented at the
time of discharge.
== END 2023-11-29 16:26 | disposition home health service (06) | DRG 40 ==
LOC: 2 NORTH 06:09
PROVIDERS: Nurse Practitioner; ADMITTING PHYSICIAN Surgery Vascular Surgery; CONSULT PHYSICIAN Otolaryngology; FAMILY PHYSICIAN Internal Medicine; OTHER PHYSICIAN Internal Medicine
PROC: 0GB60ZZ Excision of Left Carotid Body, Open Approach (ICD-10-PCS; 2023-11-24)
PROC: 03L Upper Arteries, Occlusion (ICD-10-PCS; 2023-11-24)
PROC: 008Q0ZZ Division of Vagus Nerve, Open Approach (ICD-10-PCS; 2023-11-24)
DX: D44.6 Neoplasm of uncertain behavior of carotid body (principal); E43 Unspecified severe protein-calorie malnutrition; D62 Acute posthemorrhagic anemia; E87.20 Acidosis, unspecified; I42.9 Cardiomyopathy, unspecified; I97.42 Intraoperative hemorrhage and hematoma of a circulatory system organ or structure complicating other procedure; G97.82 Other postprocedural complications and disorders of nervous system; G52.3 Disorders of hypoglossal nerve; E11.51 Type 2 diabetes mellitus with diabetic peripheral angiopathy without gangrene; E11.610 Type 2 diabetes mellitus with diabetic neuropathic arthropathy; I25.10 Atherosclerotic heart disease of native coronary artery without angina pectoris; I10 Essential (primary) hypertension; E78.00 Pure hypercholesterolemia, unspecified; D72.829 Elevated white blood cell count, unspecified; R13.19 Other dysphagia; F41.9 Anxiety disorder, unspecified; Z79.82 Long term (current) use of aspirin; Z79.84 Long term (current) use of oral hypoglycemic drugs; Z79.4 Long term (current) use of insulin; Z79.85 Long-term (current) use of injectable non-insulin antidiabetic drugs; Z95.5 Presence of coronary angioplasty implant and graft; Z89.422 Acquired absence of other left toe(s); Z68.30 Body mass index [BMI] 30.0-30.9, adult
CPT/HCPCS: 88307; 36415; 71045; 71046; 74230; 80048; 82962; 83036; 83735; 85025; 85027; 85610; 85730; 86850; 86900; 86901; 86920; 87070; 88341; 88342; 92526; 92610; 92611; 94660; 95938; 95941; P9016

== ENCOUNTER → 2023-12-08 08:15 | Outpatient (REF) | payer OTHER, SELFPAY | LOC: RST 08:15 | PROVIDERS: ATTENDING PHYSICIAN Nurse Practitioner; FAMILY PHYSICIAN Internal Medicine | DX: R13.10 Dysphagia, unspecified (principal) | CPT/HCPCS: 74230; 92611 ==

== ENCOUNTER → 2024-01-20 10:18 | Outpatient (REF) | payer OTHER, SELFPAY | LOC: RAD 10:18 | PROVIDERS: ATTENDING PHYSICIAN Surgery Vascular Surgery; FAMILY PHYSICIAN Internal Medicine | DX: D44.6 Neoplasm of uncertain behavior of carotid body (principal) | CPT/HCPCS: 70496; 70498; Q9967 ==

== ENCOUNTER → 2024-04-13 11:29 | Outpatient (REF) | payer OTHER, SELFPAY | LOC: RAD 11:29 | PROVIDERS: ATTENDING PHYSICIAN Internal Medicine | DX: R68.84 Jaw pain (principal); S09.93XA Unspecified injury of face, initial encounter | CPT/HCPCS: 70110 ==

== ENCOUNTER 2025-02-09 14:51 | Emergency (ER) | payer OTHER, SELFPAY ==
[2025-02-09 14:59] VITALS: BP 116/85
[2025-02-09 15:25] LABS: Hematocrit 41.5 % (39.0-52.0); Hemoglobin 13.5 g/dL (13.0-18.0); Mean Corp Hgb Conc. 32.5 g/dL (33.0-37.0); Mean Corpuscular Volume 85.4 fL (80.0-94.0); Nucleated Red Blood Cells % 0 % (-); Platelet Count 192 10^3/uL (130-400); Red Cell Dist. Width 13.2 % (11.5-14.5)
[2025-02-09 15:50] LABS: ALT (SGPT) 19 U/L (0-50); AST (SGOT) 24 U/L (17-59); Albumin 4.3 g/dl (3.5-5.0); Alkaline Phosphatase 106 U/L (38-126); Blood Urea Nitrogen 18 mg/dl (9-20); Calcium 9.0 mg/dl (8.4-10.2); Carbon Dioxide 25 mmol/L (22-30); Chloride 105 mmol/L (98-107); Glucose 126 mg/dl (70-99); Potassium 3.9 mmol/L (3.5-5.1); Sodium 138 mmol/L (135-145); Total Protein 7.3 g/dl (6.3-8.2); eGFR > 60.00
--- NOTE | 2025-02-09 16:00 | ED.SKININJ ---
HPI-Injury
General
Chief Complaint: Skin Problem
Source: patient
Exam Limitations: none
Time Seen by Provider: 02/09/25 15:52
History of Present Illness-Injury
Initial Injury comments:
64-year-old male type I diabetic presents with worsening foot ulcer to the left foot with increasing redness and swelling. He denies fevers or chills. He is under the care of Dr. Giles. They spoke and advised that he come here for further
evaluation. He is not currently on an antibiotic. He denies chills or nausea. He has neuropathy in his feet and does not have any pain
Past History
Past History
ED Past Medical History: Asthma, Hypercholesterolemia and IDDM
ED Past Surgical History: Other (Toe amputation)
Social History
Tobacco: Non-smoker
Alcohol: Occasional
Personal:
Living: with family
Family History
Family History: Negative Diabetes, Hypertension or CAD
Phy Exam
Physical Exam
Physical Exam:
General: Well-appearing male no acute distress
HEENT: Normal cephalic atraumatic
Heart: Regular rate and rhythm
Lungs: Clear no wheeze
Skin: Erythema and swelling with drainage out of the diabetic foot ulcer of the plantar surface of the left foot. There is a moderate amount of swelling and erythema that extends to the dorsum of the foot as well
Course
Orders/Labs/Results
Orders:
Orders
02/09/25 15:15
Complete Blood Count/With Diff Urgent
Comprehensive Metabolic Panel Urgent
Lactate Level [Lactic Acid] Q4H
Blood Culture Urgent
REA Source: Blood/Venous
Specimen Description:
02/09/25 15:59
CR Foot - Left Min 3 Views Urgent
Comment:
Reason For Exam: infection
02/09/25 17:40
Sulfamethox./Trimethoprim Ds [Bactrim Ds 800 mg/160 mg] 1 tablet PO NOW STA
02/09/25 19:15
Lactate Level [Lactic Acid] Q4H
Abnormal Lab Results
02/09/25
15:15
MCHC 32.5 L g/dL
(33.0-37.0)
Absolute Neuts (auto) 7.7 H 10^3/uL
(1.4-6.5)
Absolute Monos (auto) 0.7 H 10^3/uL
(0.1-0.6)
Neutrophils % 79.1 H %
(42.2-75.2)
Lymphocytes % 12.2 L %
(20.5-51.1)
Glucose 126 H mg/dl
(70-99)
02/09/25 15:15
02/09/25 15:15
Vital Signs
Initial and Last Documented VS:
Initial Vital Signs
Temp Pulse Resp BP Pulse Ox
98.4 F 86 16 116/85 97
02/09/25 14:59 02/09/25 14:59 02/09/25 14:59 02/09/25 14:59 02/09/25 14:59
Last Documented Vital Signs
Temp Pulse Resp BP Pulse Ox
98.4 F 86 16 136/84 97
02/09/25 14:59 02/09/25 14:59 02/09/25 14:59 02/09/25 17:00 02/09/25 17:01
MDM/Problems Addressed
Differential Diagnosis Includes:
Diabetic foot ulcer with infection.
Concern for underlying osteomyelitis. Afebrile here with normal white count. X-rays pending. Initially recommended admission to hospital secondary to his risk factors. Patient wishes he would the x-ray shows prior to making his decision
*Pulse Oximetry
SaO2: 97
Oxygen Mode of Delivery: Room air
Patient hypoxic: no
*Critical Care Note
Total Time (30-74mins, 75-104mins- exclusive of procedures): Not Applicable
Update Note
Update Note:
Patient reexamined. Labs reviewed white count normal chest x-ray shows postoperative changes but no obvious findings of osteomyelitis. Discussed with patient. Recommended admission given the diabetic state and worsening infection. Patient
declines admission. He states he does well with Bactrim. Bactrim was started here return precautions were given.
ED Attending Note
-
Portions of this chart may have been created with voice recognition software.� Occasional wrong word or��sound alike� substitutions may have occurred due to the inherent limitations of voice recognition software.
Discharge Plan
Departure
Patient Disposition: Home (Routine Discharge)
Date of Disposition: 02/09/25
Time of Disposition: 17:42
Patient with high blood pressure during this ER visit?: No
Discharge Problem:
infected diabetic foot ulcer
Instructions: Cellulitis (Skin Infection), Adult (DC)
Prescriptions:
New
sulfamethoxazole-trimethoprim [Bactrim DS] 800-160 mg tablet
1 tab PO BID Qty: 14 0RF
No Action
fluticasone propionate 1 SPRAY spray,suspension
1 spray intranasal BID
atorvastatin 40 MG tablet
80 mg PO HS
lisinopril 10 MG tablet
10 mg PO HS
dapagliflozin propanediol [Farxiga] 5 mg tablet
5 mg PO HS
paroxetine HCl 10 mg Tablet
10 mg PO HS
aspirin 81 mg tablet,chewable
81 mg PO HS
Ozempic 0.25 mg or 0.5 mg (2 mg/3 mL) Pen Injector
0.25 mg SC QWEEK
carvedilol 3.125 mg tablet
3.125 mg PO HS
Patient Comments:
11/24/23: prescribed as BID but patient states he takes once in the evening
oxycodone 5 mg/5 mL Solution
5 mg PO Q6HPRN PRN (Reason: mild pain) 4 Days Qty: 80 0RF
Insulin Glargine Lantus [Lantus] 30 UNITS
Subcutaneous Insulin Syringe [Syringe-Insulin] 0 UNIT
As Directed mls/hr SC HS
Ordered By: Laura Sun CRNP
Last Taken: Unknown
acetaminophen 650 mg/20.3 mL Solution
650 mg PO Q6H PRN (Reason: mild pain) 7 Days Qty: 568.4 0RF
insulin aspart U-100 [Novolog FlexPen U-100 Insulin] 300 UNITS/3 ML insulin pen
1 sliding scale dose SC AC Qty: 0 0RF
Patient Comments:
sliding scale per patient
Referrals:
Mikhail Andrade I., [Family Provider, Internal Medicine]
Activity Restrictions/Additional Instructions:
Take antibiotics as directed. Change dressing as needed. Return here for increasing redness swelling fevers chills or other concerning findings
Interventions
Interventions:
*Risk Screen - Suicide Last Done: 02/09/25 16:30
*General Assessment Last Done: 02/09/25 16:30
*Neglect/Abuse Screening Last Done: 02/09/25 16:30
*ED- Fall Risk Assessment Last Done: 02/09/25 16:30
*ED COVID-19 Vaccine History Last Done: 02/09/25 16:30
ED-Skin Assessment Last Done: 02/09/25 16:30
Discharge Date and Time
Print Language: LATVIAN
[2025-02-09 16:30] VITALS: BMI 30.5
[2025-02-09 16:31] VITALS: BP 124/74
[2025-02-09 17:00] VITALS: BP 136/84
[2025-02-09 18:00] VITALS: BP 139/93
[2025-02-09] MEDS: BACTRIM DS 800 MG/160 MG 1 TABLET PO (18:34)
== END 2025-02-09 18:50 | disposition home or self-care (01) ==
LOC: EMR 14:51
PROVIDERS: EMERGENCY PHYSICIAN Emergency Medicine; FAMILY PHYSICIAN Internal Medicine
DX: L08.9 Local infection of the skin and subcutaneous tissue, unspecified (principal); E10.621 Type 1 diabetes mellitus with foot ulcer; L97.429 Non-pressure chronic ulcer of left heel and midfoot with unspecified severity; J45.909 Unspecified asthma, uncomplicated; E78.00 Pure hypercholesterolemia, unspecified; Z79.4 Long term (current) use of insulin
CPT/HCPCS: 99284; 73630; 80053; 83605; 85025; 87040

== ENCOUNTER 2025-02-18 05:59 | Day surgery (SDC) | payer OTHER, SELFPAY ==
[2025-02-18] VITALS (10 sets, daily range): BP systolic 108–138; BP diastolic 73–90; BMI 29.6
--- NOTE | 2025-02-18 06:50 | PTCARENOTE ---
No need to do an EKG per Anesthesiologist.
[2025-02-18] MEDS: TYLENOL 1000 MG PO (06:56)
[2025-02-18] MEDS: CELEBREX 200 MG PO (06:57)
[2025-02-18] MEDS: NORMOSOL-R/PLASMALYTE-A 1000 IV (07:09)
[2025-02-18 07:14] LABS: Glucose - Point of Care 115 mg/dl (70-99)
--- NOTE | 2025-02-18 07:20 | PTCARENOTE ---
Patient has a chronic stage 3 ulcer to the L ball of foot. Unwrapped and wiped around the ulcer with chlorhexidine prior to the surgery. Will monitor patient.
[2025-02-18 09:43] LABS: Glucose - Point of Care 108 mg/dl (70-99)
== END 2025-02-18 11:31 | disposition home or self-care (01) ==
LOC: SDS 05:59
PROVIDERS: ATTENDING PHYSICIAN Student in an Organized Health Care Education/Training Program
DX: M86.172 Other acute osteomyelitis, left ankle and foot (principal)
CPT/HCPCS: 27685; 28810; 82962; 87070; 87075; 87205; 88304; 88305; 88311